=== PATIENT | male | born 1950 | race Caucasian/White ===

== ENCOUNTER 2023-07-13 10:28 | Emergency (ER) | payer MEDICARE, OTHER ==
[~2023-07-13] VITALS: Ht 175.3 cm; Wt 78.6 kg
[2023-07-13 10:40] VITALS: TEMP 98.6
[2023-07-13] MEDS: ACETAMINOPHEN 500 MG TABLET PO ONE (10:51)
[2023-07-13 11:30] VITALS: BP 140/86; PULSE 72; RESP 16
[2023-07-13] MEDS ORDERED: ACET-3385 PO (11:30)
== END 2023-07-13 11:47 | disposition home or self-care (01) ==
LOC: EMS 10:28
DX: S13.4XXA Sprain of ligaments of cervical spine, initial encounter (principal); E11.9 Type 2 diabetes mellitus without complications; V49.88XA Car occupant (driver) (passenger) injured in other specified transport accidents, initial encounter; Y93.89 Activity, other specified; Y92.89 Other specified places as the place of occurrence of the external cause; Y99.8 Other external cause status
CPT/HCPCS: 72125; 99284; Z7502; Z7610